=== PATIENT | female | born 1990 | race Two or more races ===

== ENCOUNTER → 2017-05-08 | Outpatient (CLI) | payer OTHER | END | disposition home or self-care (01) | LOC: CFH 13:42 | PROVIDERS: ATTEND Obstetrics & Gynecology Female Pelvic Medicine and Reconstructive Surgery | DX: N83.201 Unspecified ovarian cyst, right side (principal); N63.11 Unspecified lump in the right breast, upper outer quadrant; N93.9 Abnormal uterine and vaginal bleeding, unspecified; N93.0 Postcoital and contact bleeding; Z85.3 Personal history of malignant neoplasm of breast | CPT/HCPCS: 76830 ==